=== PATIENT | female | born 1980 | race Caucasian/White ===

== ENCOUNTER 2016-12-03 16:52 | Emergency (ER) | payer OTHER ==
[~2016-12-03] VITALS: Ht 149.9 cm; Wt 68.0 kg
[~2016-12-03 16:52] MED LIST: ALBU0.5N2 NEB; ALBU1AER9 INH; CALC600T9 PO; CIPR-255 PO; CYAN100020 PO; ESTR0.3T PO; FLUT0.15 NAE; FLUT110A INH; HYDR-5688 PO; LISI10TA PO
[2016-12-03 16:59] VITALS: TEMP 36.8; Ht 149.9 cm; Wt 68.0 kg
[2016-12-03] MEDS ORDERED: HYDROmorphone INJ 1 MG/ML SYR IV STA ×2 (17:31→18:53)
[2016-12-03] MEDS ORDERED: KETOROLAC TROMETHAMINE 30 MG/ML VIAL IV STA (17:31)
[2016-12-03] MEDS ORDERED: ONDANSETRON INJ 2 MG/ML 2 ML VIAL IV STA (17:31)
[2016-12-03] MEDS ORDERED: SODIUM CHLORIDE 0.9% 1000ML 1,000 ML IV STA (17:31)
--- NOTE | 2016-12-03 17:32 | EMERGENCY ROOM VISIT NOTE ---
History Report prepared by Lai: Hiren Mackenzie Under the Supervision of: Dr. Vega Mckenzie M.D. First contact with patient: 17:23 Chief Complaint: BACK PAIN Stated Complaint: LOWER BACK PAIN W/NUMBNESS GOING DOWN LEG History of Present Illness The patient is a 36 year old female who presents to the Emergency Room with complaints of worsening back pain that started today. The patient has a history of back problems for the past few years. The patient has been complaining of a pressure in her lower back for the past week. The pressure is worsened with standing. Today, when the patient woke up her right leg started going numb. She notes that the numbness starts at her butt and radiates to her foot. She denies losing control of her bladder or bowels. Source of History: patient Onset: today Position: back (lower) Quality: pressure Timing: worsening Modifying Factors (Worsening): other (standing) Associated Symptoms: + numbness (right leg) Note: Denies: losing control of her bowels or bladder Review of Systems See HPI for pertinent positives & negatives. A total of 10 systems reviewed and were otherwise negative. Past Medical & Surgical Medical Problems: (1) Asthma (2) Hypertension Surgical Problems: (1) History of appendectomy (2) History of cholecystectomy (3) History of hysterectomy Family History Cancer Diabetes mellitus FH: heart disease FHx: gallbladder disease FHx: lung disease Hypertension Kidney disease Kidney stones Seizures Social History Smoking Status: Current Every Day Smoker Alcohol Use: none Marital Status: Housing Status: lives with family Occupation Status: unemployed Current/Historical Medications Scheduled Cyclobenzaprine Hcl (Flexeril), 10 MG PO TID Diclofenac Sodium (Diclofenac Sodium Dr), 1 TAB PO TID Docusate Sodium (Colace), 1 CAP PO BID Fluticasone Propionate (Inhala (Flovent Diskus), 1 PUFFS INH BID Gabapentin (Neurontin), 1 CAP PO TID Ipratropium-Albuterol (Duoneb), 1 TREATMENT INH Q4H Lisinopril (Prinivil), 10 MG PO DAILY Sennosides (Senokot), 8.6 MG PO HS Sumatriptan Succinate (Imitrex), 25 MG PO PRN Venlafaxine Hcl (Venlafaxine Extended Rel), 1 TAB PO DAILY Scheduled PRN Albuterol Sulfate (Proair Respiclick), 2 PUFF INH QID PRN for SOB/Wheezing Oxycodone/Acetaminophen 5MG/325MG (Percocet 5MG/325MG), 1-2 TAB PO Q4H PRN for Pain Allergies Coded Allergies: Penicillins (Verified Allergy, Intermediate, RASH, 12/03/16) Physical Exam Vital Signs Date Time Temp Pulse Resp B/P Pulse Ox O2 Delivery O2 Flow Rate FiO2 12/03/16 19:47 72 16 116/71 94 Room Air 12/03/16 18:50 69 18 136/85 98 Room Air 12/03/16 16:59 36.8 101 20 136/91 99 Room Air Physical Exam GENERAL: Patient is a healthy-appearing well-nourished HEAD: Normocephalic atraumatic EYES: Ocular movements intact pupils equal and react to light OROPHARYNX mucous membranes are moist no exudates present no erythema or edema present NECK: Supple no nuchal rigidity CHEST: Good equal expansion LUNGS: Clear and equal to auscultation CARDIAC: Normal S1 and S2 ABDOMEN: Soft nontender no guarding BACK: No CVA tenderness EXTREMITIES: No pain upon palpation normal muscle strength in all groups no clubbing cyanosis or edema NEURO: Patient is following commands is answering questions appropriately. Alert and oriented x3 Cranial Nerves 2-12 grossly intact Medical Decision & Procedures ER Provider Diagnostic Interpretation: MRI results as stated below per my review and radiologist interpretation: LUMBAR SPINE MRI HISTORY: Pt c/o low back pain, incontinence TECHNIQUE: Multiplanar multisequence MRI of the lumbar spine was performed without the use of contrast. COMPARISON: Lumbar spine 03/31/2015. FINDINGS: For the purpose of the report the L5-S1 disc space will be located on axial image 23 of 25. No fracture or subluxation. Disc spaces are preserved. The conus terminates at the T12-L1 disc space level. No disc herniations. Paraspinal soft tissues are unremarkable. L1-L2: No significant central canal or neural foraminal narrowing. L2-L3: No significant central canal or neural foraminal narrowing. L3-L4: No significant central canal or neural foraminal narrowing. L4-L5: No significant central canal or neural foraminal narrowing. L5-S1: No significant central canal or neural foraminal narrowing. IMPRESSION: Normal lumbar spine MRI. Electronically signed by: Taco Nielson M.D. 12/03/2016 7:16 PM Dictated Date/Time: 12/03/2016 7:13 PM Medications Administered Medications (Trade) Dose Ordered Sig/Dee Dee Route Start Time Stop Time Status Last Admin Dose Admin Sodium Chloride (Nss 1000ml) 1,000 ml @ 999 mls/hr Q1H1M STAT IV 12/03/16 17:31 12/03/16 18:31 DC 12/03/16 17:52 999 MLS/HR Dexamethasone Sodium Phosphate (Decadron Inj) 10 mg NOW ONCE IV 12/03/16 17:45 12/03/16 17:46 DC 12/03/16 17:58 10 MG Hydromorphone HCl (Dilaudid Inj) 1 mg NOW STAT IV 12/03/16 17:31 12/03/16 17:34 DC 12/03/16 17:55 1 MG Ketorolac Tromethamine (Toradol Inj) 30 mg NOW STAT IV 12/03/16 17:31 12/03/16 17:34 DC 12/03/16 18:00 30 MG Ondansetron HCl (Zofran Inj) 4 mg NOW STAT IV 12/03/16 17:31 12/03/16 17:34 DC 12/03/16 17:53 4 MG Hydromorphone HCl 1 mg 1 mg NOW STAT IV 12/03/16 18:53 12/03/16 18:54 DC 12/03/16 19:06 1 MG Promethazine HCl/ Sodium Chloride (Phenergan Inj/ Nss 50ml) 51 ml @ 204 mls/hr NOW STAT IV 12/03/16 18:53 12/03/16 19:07 DC 12/03/16 19:17 204 MLS/HR Oxycodone/ Acetaminophen (Percocet 5/ 325MG Home Pack) 1 homepack UD ONCE PO 12/03/16 19:00 12/03/16 19:01 DC 12/03/16 19:07 1 HOMEPACK Cyclobenzaprine HCl (FLEXERIL 10MG Home Pack) 1 homepack UD ONCE PO 12/03/16 19:45 12/03/16 19:46 DC 12/03/16 19:46 1 HOMEPACK Cyclobenzaprine HCl (Flexeril Tab) 10 mg STK-MED ONCE .ROUTE 5/14/17 19:42 12/03/16 19:43 DC 12/03/16 19:46 5 MG ED Course 1722: Past medical records reviewed. The patient was evaluated in room B3. A complete history and physical examination was performed. 1731: Ordered Zofran Inj 4 mg IV, Toradol Inj 30 mg IV, Dilaudid Inj 1 mg IV, NSS 1000 ml @ 999 mls/hr IV. 1745: Ordered Decadron Inj 10 mg IV. 1853: Promethazine HCl 25 mg/ NSS 51 ml @ 204 mls/hr IV, Dilaudid Inj 1 mg IV. 0: Ordered Oxycodone/ Acetaminophen 1 homepack PO. 1937: Ordered Flexeril Tab 5 mg PO. 1941: Ordered Flexeril tab 10 mg .ROUTE. 1944: Ordered Flexeril 10 MG Home Pack 1 homepack PO. 1950: At this time, I discussed the results with the patient. The manager ecommerce will be going in to discuss follow-up with the patient. 2100: Upon reexamination the patient is resting. I discussed results and treatment plan with the patient. She verbalizes agreement and understanding. The patient is ready for discharge. Medical Decision Differential diagnosis: Etiologies such as musculoskeletal, disc herniation, fracture, aortic disease, metastatic disease, cord compression, discitis, infection, renal colic, gastrointestinal, acute exacerbation of chronic back pain, sciatica, cauda equina, as well as others were entertained. This is a 36-year-old female who presents emergency department complaining of incontinence for the past 2 weeks along with pain that runs down her right leg. The patient is crying and her pain is out of control. Based on these findings patient was sent for an MRI of her spine. This did not show any acute process. IV was established, the patient was given normal saline bolus, 1 mg Dilaudid 2, Decadron, Toradol. Repeat examination revealed much improvement patient's symptoms. Based on the MRI findings I believe the patient is safe enough to be discharged home for follow-up with orthopedic surgery. The patient was in agreement with the treatment plan. Impression Primary Impression: Low back pain Scribe Attestation The scribe's documentation has been prepared under my direction and personally reviewed by me in its entirety. I confirm that the note above accurately reflects all work, treatment, procedures, and medical decision making performed by me. Departure Information Dispostion Home / Self-Care Prescriptions Sennosides (SENOKOT) 8.6 Mg Tab 8.6 MG PO HS for 10 Days, #10 TAB Prov: Vega Mckenzie MD 12/03/16 Docusate Sodium (COLACE) 100 Mg Cap 1 CAP PO BID for 10 Days, #20 CAP Prov: Vega Mckenzie MD 12/03/16 Oxycodone/Acetaminophen 5MG/325MG (PERCOCET 5MG/325MG) Tab 1-2 TAB PO Q4H Y for Pain, #14 TAB Prov: Vega Mckenzie MD 12/03/16 Cyclobenzaprine Hcl (FLEXERIL) 10 Mg Tab 10 MG PO TID, #21 TAB Prov: Vega Mckenzie MD 12/03/16 Referrals Amadeo Plaza M.D. (PCP) Forms HOME CARE DOCUMENTATION FORM, IMPORTANT VISIT INFORMATION Patient Instructions ED Exercises Lumbar Muscles, ED Sciatica, ED Sprain Strain Lumbar, Lumbar Pain Causes, My [facility] Additional Instructions Follow up with DR Ramos's office You received narcotic or benzodiazepene medication while in the emergency room today. Do not drive, operate heavy machinery, or drink alcohol under the influence of this medication. Take 600 mg Ibuprofen every 6 hours Take flexeril 10 mg three times as day Take Percocet as needed for breakthrough pain You have been examined and treated today on an emergency basis only. This is not a substitute for, or an effort to provide, complete comprehensive medical care. It is impossible to recognize and treat all injuries or illnesses in a single emergency department visit. It is therefore important that you follow up closely with Dr Plaza. Call as soon as possible for an appointment. Thank you for your time and consideration. I look forward to speaking with you again soon. Please don't hesitate to call us if you have any questions. Problem Qualifiers Primary Impression: Low back pain Chronicity: acute Back pain laterality: right Sciatica presence: with sciatica Sciatica laterality: sciatica of right side Qualified Codes: M54.41 - Lumbago with sciatica, right side
[2016-12-03] MEDS ORDERED: DEXAMETHASONE SOD INJ 10 MG/ML VIAL IV ONE (17:45)
[2016-12-03] MEDS ORDERED: PROMETHAZINE HCL INJ 25 MG in SODIUM CHLORIDE 0.9% 50ML 50 ML IV STA (18:53)
[2016-12-03] MEDS ORDERED: PERCOCET HOME PACK PO ONE (19:00)
[2016-12-03] MEDS ORDERED: VENL37.593 PO (19:06)
[2016-12-03] MEDS ORDERED: DICL1TAB5 PO (19:06)
[2016-12-03] MEDS ORDERED: IPRASOL4 INH (19:06)
--- NOTE | 2016-12-03 19:17 | DIAGNOSTIC IMAGING REPORT ---
LUMBAR SPINE MRI HISTORY: Pt c/o low back pain, incontinence TECHNIQUE: Multiplanar multisequence MRI of the lumbar spine was performed without the use of contrast. COMPARISON: Lumbar spine 03/31/2015. FINDINGS: For the purpose of the report the L5-S1 disc space will be located on axial image 23 of 25. No fracture or subluxation. Disc spaces are preserved. The conus terminates at the T12-L1 disc space level. No disc herniations. Paraspinal soft tissues are unremarkable. L1-L2: No significant central canal or neural foraminal narrowing. L2-L3: No significant central canal or neural foraminal narrowing. L3-L4: No significant central canal or neural foraminal narrowing. L4-L5: No significant central canal or neural foraminal narrowing. L5-S1: No significant central canal or neural foraminal narrowing. IMPRESSION: Normal lumbar spine MRI. Electronically signed by: Taco Nielson M.D. 12/03/2016 7:16 PM Dictated Date/Time: 12/03/2016 7:13 PM
[2016-12-03] MEDS ORDERED: CYCLOBENZAPRINE HCL 5 MG TAB PO STA (19:38)
[2016-12-03] MEDS ORDERED: CYCLOBENZAPRINE HCL 10 MG TAB ONE (19:42)
[2016-12-03] MEDS ORDERED: OXYC-57 PO (19:44)
[2016-12-03] MEDS ORDERED: CYCL10TA6 PO (19:44)
[2016-12-03] MEDS ORDERED: FLEXERIL HOME PACK 10 MG VIAL PO ONE (19:45)
[2016-12-03] MEDS ORDERED: SENN1TAB77 PO (19:46)
[2016-12-03] MEDS ORDERED: DOCU-94 PO (19:46)
[2016-12-03 19:47] VITALS: BP 116/71; PULSE 72; O2SAT 94
== END 2016-12-03 19:53 | disposition home or self-care (01) ==
LOC: C.EDB 16:53
DX: M54.5 Low back pain (principal); I10 Essential (primary) hypertension; J45.909 Unspecified asthma, uncomplicated; F17.200 Nicotine dependence, unspecified, uncomplicated; Z90.710 Acquired absence of both cervix and uterus; Z90.49 Acquired absence of other specified parts of digestive tract; Z98.890 Other specified postprocedural states; Z79.899 Other long term (current) drug therapy; Z80.9 Family history of malignant neoplasm, unspecified; Z83.3 Family history of diabetes mellitus; Z82.49 Family history of ischemic heart disease and other diseases of the circulatory system; Z84.1 Family history of disorders of kidney and ureter; Z82.0 Family history of epilepsy and other diseases of the nervous system; Z88.0 Allergy status to penicillin

== ENCOUNTER 2017-02-01 17:52 | Emergency (ER) | payer OTHER ==
[~2017-02-01] VITALS: Ht 149.9 cm; Wt 67.1 kg
[~2017-02-01 17:52] MED LIST changes: -ALBU0.5N2 NEB; -ALBU1AER9 INH; -CALC600T9 PO; -CIPR-255 PO; -CYAN100020 PO; +DICL1TAB5 PO; -ESTR0.3T PO; -FLUT0.15 NAE; -FLUT110A INH; -HYDR-5688 PO; +IPRASOL4 INH; +OXYC-57 PO; +VENL37.593 PO
[2017-02-01 17:55] VITALS: TEMP 37.1; Ht 149.9 cm; Wt 67.1 kg
[2017-02-01] MEDS ORDERED: DiphenhydrAMINE HCL 50 MG/ML VIAL IV STA (18:14)
[2017-02-01] MEDS ORDERED: SODIUM CHLORIDE 0.9% 1000ML 1,000 ML IV STA (18:14)
[2017-02-01] MEDS ORDERED: PROCHLORPERAZINE 5 MG/ML 2 ML VIAL IV STA (18:14)
[2017-02-01 18:29] VITALS: O2SAT 98
[2017-02-01 18:49] LABS: BASO % 0.4 %; BASO ABS # 0.04 K/uL (0-0.2); COMPLETE YES; EOS % 1.5 %; IG% 0.2 %; LYMPH % 34.4 %; LYMPH ABS # 3.44 K/uL (1.2-3.4); MEAN CELL VOLUME 87.6 fL (80-100); MEAN CORPUSCULAR HEMOGLOBIN 30.5 pg (25-34); MEAN CORPUSCULAR HGB CONC 34.9 g/dl (32-36); MEAN PLATELET VOLUME 10.5 fL (7.4-10.4); MONO % 5.1 %; NEUT % 58.4 %; PLATELET COUNT 294 K/uL (130-400); RED BLOOD COUNT 4.91 M/uL (4.2-5.4)
[2017-02-01 18:50] LABS: POINT OF CARE TROPONIN I < 0.030 ng/ml (0-0.045)
[2017-02-01 18:56] LABS: PROTHROMBIN TIME (PATIENT) 10.6 SECONDS (9.0-12.0)
[2017-02-01] MEDS ORDERED: LSN20 PO (19:04)
[2017-02-01] MEDS ORDERED: AMT10 PO (19:04)
[2017-02-01] MEDS ORDERED: CYCL10TA7 PO (19:05)
[2017-02-01] MEDS ORDERED: SUMA25TA12 PO (19:06)
[2017-02-01] MEDS ORDERED: GABA1CAP5 PO (19:06)
[2017-02-01] MEDS ORDERED: FLUT1AER5 INH (19:06)
[2017-02-01] MEDS ORDERED: ALBU18002 INH (19:06)
--- NOTE | 2017-02-01 19:09 | DIAGNOSTIC IMAGING REPORT ---
SINGLE VIEW CHEST CLINICAL HISTORY: Atypical chest pain. FINDINGS: An AP, portable, upright chest radiograph is compared to chest x-ray and chest CT dated 09/18/2015. The examination is degraded by portable technique and patient rotation. The cardiomediastinal silhouette is unremarkable. There is mild elevation of the right hemidiaphragm. The lungs and pleural spaces are clear. No pneumothorax is seen. The bony thorax is grossly intact. Cholecystectomy clips are noted in the right upper quadrant. IMPRESSION: No active disease in the chest. Electronically signed by: Irineo Abad M.D. 02/01/2017 7:08 PM Dictated Date/Time: 02/01/2017 7:06 PM
[2017-02-01 19:11] LABS: BUN/CREATININE RATIO 9.6 (10-20); CALCIUM 9.6 mg/dl (8.5-10.1); CREATININE 0.88 mg/dl (0.60-1.20); POTASSIUM 3.5 mmol/L (3.5-5.1)
--- NOTE | 2017-02-01 19:24 | DIAGNOSTIC IMAGING REPORT ---
CT SCAN OF THE BRAIN WITHOUT IV CONTRAST CLINICAL HISTORY: Headache. COMPARISON STUDY: No priors. TECHNIQUE: Unenhanced axial CT scan of the brain is performed from the vertex to the skull base. Automated dose control exposure was utilized. CT DOSE: 537.48 mGy.cm FINDINGS: Brain parenchyma: The brain parenchyma is normal in appearance. There is no hemorrhage, mass effect, or evidence of acute territorial ischemia by CT criteria. Watt-white matter is preserved. No extra-axial fluid collection is seen. Ventricles, sulci, cisterns: Normal in configuration. Intracranial vasculature: The visualized intracranial vasculature at the skull base is normal in appearance. Calvarium: The calvarium appears intact.. The patient is edentulous. Sinuses and mastoids: The visualized paranasal sinuses are clear. The mastoid air cells are well pneumatized. Orbits: The bony orbits are grossly intact. IMPRESSION: No acute intracranial abnormality. Electronically signed by: Irineo Abad M.D. 02/01/2017 7:23 PM Dictated Date/Time: 02/01/2017 7:21 PM
--- NOTE | 2017-02-01 19:43 | EMERGENCY ROOM VISIT NOTE ---
History Report prepared by Lai: Kenya Moody Under the Supervision of: Dr. Juan Zaidi M.D. First contact with patient: 18:08 Chief Complaint: HYPERTENSION Stated Complaint: ELEVATED BP, HEADACHE History of Present Illness The patient is a 36 year old female who presents to the Emergency Room with complaints of hypertension beginning today. She states that her blood pressure was at 146/104. She states that she takes Lisinopril for her hypertension and that she did take the medication today. She also reports that this dosage increased yesterday. The patient also reports having a pounding headache starting today and states that she has a history of migraines. She reports that she took Tylenol this afternoon for her headache but that it provided no relief. She also complains of left-sided chest pain beginning today that waxes and wanes. The pain is described as being sharp. She denies shortness of breath , abdominal pain, and vomiting. She states that there is no chance that she is because she had a hysterectomy. She also reports having a history of asthma and that she smokes. Source of History: patient Onset: today Position: other (global) Quality: other (hypertension ) Associated Symptoms: + headache, + chest pain, No SOB, No vomiting, No abdominal pain Review of Systems See HPI for pertinent positives & negatives. A total of 10 systems reviewed and were otherwise negative. Past Medical & Surgical Medical Problems: (1) Asthma (2) Hypertension Surgical Problems: (1) History of appendectomy (2) History of cholecystectomy (3) History of hysterectomy Family History Cancer Diabetes mellitus FH: heart disease FHx: gallbladder disease Hypertension Kidney disease Kidney stones Seizures Social History Smoking Status: Current Every Day Smoker Alcohol Use: none Marital Status: Housing Status: lives with family Occupation Status: unemployed Current/Historical Medications Scheduled Amitriptyline HCl (Amitriptyline HCl), 10 MG PO HS Fluticasone Propionate (Inhala (Flovent Diskus), 1 PUFFS INH BID Gabapentin (Neurontin), 1 CAP PO TID Lisinopril (Lisinopril), 20 MG PO DAILY Sumatriptan Succinate (Imitrex), 25 MG PO PRN Scheduled PRN Albuterol Sulfate (Proair Respiclick), 2 PUFF INH QID PRN for SOB/Wheezing Cyclobenzaprine HCl (Cyclobenzaprine HCl), 10 MG PO TID PRN for Muscle Spasms Ipratropium-Albuterol (Duoneb), 1 TREATMENT INH Q4H PRN for SOB/Wheezing Allergies Coded Allergies: Penicillins (Verified Allergy, Intermediate, RASH, 12/03/16) Physical Exam Vital Signs Date Time Temp Pulse Resp B/P (MAP) Pulse Ox O2 Delivery O2 Flow Rate FiO2 02/01/17 19:07 82 02/01/17 18:42 82 20 144/82 98 Room Air 02/01/17 18:29 98 Room Air 02/01/17 17:55 37.1 100 20 136/93 98 Room Air Physical Exam Constitutional: Vital signs reviewed. Eyes: Pupils are equal round reactive to light. Conjunctiva are noninjected. ENT: Pharynx is clear without erythema or exudate. Mucous membranes are moist. Neck supple without meningeal signs. Respiratory: Clear to auscultation bilaterally. Breath sounds are equal bilaterally. Cardiovascular: Regular rate and rhythm. No rubs or gallops. GI: Soft, nondistended and nontender. Bowel sounds are present. Musculoskeletal: No peripheral edema. No lower extremity tenderness. Integumentary: No cyanosis. Neurological: The patient is awake and alert. Cranial nerves II-XII are intact. Motor is 5 out of 5 all extremities. Sensation is intact to light touch all extremities. Normal speech. No pronator drift. Psychiatric: Anxious affect. Medical Decision & Procedures ER Provider Diagnostic Interpretation: CT results as stated below per my review and radiologist interpretation. CT SCAN OF THE BRAIN WITHOUT IV CONTRAST CLINICAL HISTORY: Headache. COMPARISON STUDY: No priors. TECHNIQUE: Unenhanced axial CT scan of the brain is performed from the vertex to the skull base. Automated dose control exposure was utilized. CT DOSE: 537.48 mGy.cm FINDINGS: Brain parenchyma: The brain parenchyma is normal in appearance. There is no hemorrhage, mass effect, or evidence of acute territorial ischemia by CT criteria. Watt-white matter is preserved. No extra-axial fluid collection is seen. Ventricles, sulci, cisterns: Normal in configuration. Intracranial vasculature: The visualized intracranial vasculature at the skull base is normal in appearance. Calvarium: The calvarium appears intact.. The patient is edentulous. Sinuses and mastoids: The visualized paranasal sinuses are clear. The mastoid air cells are well pneumatized. Orbits: The bony orbits are grossly intact. IMPRESSION: No acute intracranial abnormality. Electronically signed by: Irineo Abad M.D. 02/01/2017 7:23 PM Dictated Date/Time: 02/01/2017 7:21 PM X-ray results as stated below per interpretation by me and the radiologist: SINGLE VIEW CHEST CLINICAL HISTORY: Atypical chest pain. FINDINGS: An AP, portable, upright chest radiograph is compared to chest x-ray and chest CT dated 09/18/2015. The examination is degraded by portable technique and patient rotation. The cardiomediastinal silhouette is unremarkable. There is mild elevation of the right hemidiaphragm. The lungs and pleural spaces are clear. No pneumothorax is seen. The bony thorax is grossly intact. Cholecystectomy clips are noted in the right upper quadrant. IMPRESSION: No active disease in the chest. Electronically signed by: Irineo Abad M.D. 02/01/2017 7:08 PM Dictated Date/Time: 02/01/2017 7:06 PM Laboratory Results 02/01/17 17:25 Red Blood Count 4.91, Mean Corpuscular Volume 87.6, Mean Corpuscular Hemoglobin 30.5, Mean Corpuscular Hemoglobin Concent 34.9, Mean Platelet Volume 10.5, Neutrophils (%) (Auto) 58.4, Lymphocytes (%) (Auto) 34.4, Monocytes (%) (Auto) 5.1, Eosinophils (%) (Auto) 1.5, Basophils (%) (Auto) 0.4, Neutrophils # (Auto) 5.84, Lymphocytes # (Auto) 3.44, Monocytes # (Auto) 0.51, Eosinophils # (Auto) 0.15, Basophils # (Auto) 0.04 02/01/17 17:25 Test 02/01/17 17:25 02/01/17 18:31 White Blood Count 10.00 K/uL (4.8-10.8) Red Blood Count 4.91 M/uL (4.2-5.4) Hemoglobin 15.0 g/dL (12.0-16.0) Hematocrit 43.0 % (37-47) Mean Corpuscular Volume 87.6 fL (80-100) Mean Corpuscular Hemoglobin 30.5 pg (25-34) Mean Corpuscular Hemoglobin Concent 34.9 g/dl (32-36) Platelet Count 294 K/uL (130-400) Mean Platelet Volume 10.5 fL (7.4-10.4) Neutrophils (%) (Auto) 58.4 % Lymphocytes (%) (Auto) 34.4 % Monocytes (%) (Auto) 5.1 % Eosinophils (%) (Auto) 1.5 % Basophils (%) (Auto) 0.4 % Neutrophils # (Auto) 5.84 K/uL (1.4-6.5) Lymphocytes # (Auto) 3.44 K/uL (1.2-3.4) Monocytes # (Auto) 0.51 K/uL (0.11-0.59) Eosinophils # (Auto) 0.15 K/uL (0-0.5) Basophils # (Auto) 0.04 K/uL (0-0.2) RDW Standard Deviation 42.9 fL (36.4-46.3) RDW Coefficient of Variation 13.4 % (11.5-14.5) Immature Granulocyte % (Auto) 0.2 % Immature Granulocyte # (Auto) 0.02 K/uL (0.00-0.02) Prothrombin Time 10.6 SECONDS (9.0-12.0) Prothromb Time International Ratio 1.0 (0.9-1.1) Activated Partial Thromboplast Time 26.6 SECONDS (21.0-31.0) Partial Thromboplastin Ratio 1.0 Anion Gap 9.0 mmol/L (3-11) Est Creatinine Clear Calc Drug Dose 75.1 ml/min Estimated GFR () 99.4 Estimated GFR (Non- 85.7 BUN/Creatinine Ratio 9.6 (10-20) Calcium Level 9.6 mg/dl (8.5-10.1) Bedside D-Dimer 355 ng/mlFEU (0-450) Bedside Troponin I < 0.030 ng/ml (0-0.045) Laboratory results as reviewed by me. Medications Administered Medications (Trade) Dose Ordered Sig/Dee Dee Route Start Time Stop Time Status Last Admin Dose Admin Prochlorperazine Edisylate (Compazine Inj) 10 mg NOW STAT IV 02/01/17 18:14 02/01/17 18:17 DC 02/01/17 18:49 10 MG Diphenhydramine HCl (Benadryl Inj) 50 mg NOW STAT IV 7/13/17 18:14 02/01/17 18:17 DC 02/01/17 18:49 50 MG Sodium Chloride 1,000 ml @ 999 mls/hr Q1H1M STAT IV 02/01/17 18:14 02/01/17 19:14 DC 02/01/17 18:45 999 MLS/HR ECG Indication: other (hypertension) Rate (beats per minute): 84 Rhythm: normal sinus Findings: no acute ischemic change, no ectopy ED Course 1810: The patient was evaluated in room C5. A complete history and physical exam was performed. 1813: Ordered Sodium Chloride 1,000 ml @ 999 mls/hr IV, Benadryl Inj 50 mg IV, Compazine Inj 10 mg IV. 1908: I reassessed the patient and she says her headache has improved. I also discussed test results. 1929: Upon reevaluation, the patient appeared to have improvement of her symptoms. I discussed tonight's findings with her. She verbalized agreement of the treatment plan. She was discharged home. Medical Decision This is a 36-year-old female who presents with headache, high blood pressure and chest pain. Differential diagnosis includes migraine headache, tension headache, intracranial hemorrhage, intracranial mass, pleurisy, pulmonary embolism, AK. I did perform a limited focused review of portions of the patient 's old chart on the electronic medical record. The patient was seen here in November for lower back pain. She had an MRI of her back done which was normal and treated with Percocet and Flexeril. Blood Pressure Screening: Patient was found to have an elevated blood pressure and was referred to their primary doctor for recheck and further treatment. Medication Reconciliation: I attest that I have personally reviewed the patient' s current medication list. I did evaluate the patient as noted above. The patient is presenting with elevated blood pressure but her blood pressure here is only mildly elevated. She does complain of a headache and is neurologically intact. She has no fever or neurologic deficits. She does state the headache feels different from her regular migraines. She also has some intermittent left-sided chest pain but currently has no chest pain. She denies any associated symptoms. IV access was established. The patient was placed on a continuous environmental monitoring technician. I did order and personally review the patient's 12-lead EKG and chest x-ray as described above. I did order and review the patient's blood work as noted in the electronic medical record. Troponin and d-dimer are both negative. I did order a CT of the head. I did review the images myself as well as the radiology report as described above. There is no evidence of acute intracranial abnormality. I did treat the patient with normal saline, Compazine and Benadryl IV. On reevaluation patient states she is feeling better. I did recommend close follow up with her doctor. She was discharged in good condition and given return instructions as outlined below. Impression Primary Impression: Acute headache Additional Impressions: Left sided chest pain Hypertension Scribe Attestation The scribe's documentation has been prepared under my direct and personally reviewed by me in its entirety. I confirm that the note above accurately reflects all work, treatment, procedures, and medical decision making performed by me. Departure Information Dispostion Home / Self-Care Referrals No Doctor, Assigned (PCP) Amadeo Plaza M.D. Forms HOME CARE DOCUMENTATION FORM, IMPORTANT VISIT INFORMATION, WORK / SCHOOL INSTRUCTIONS Patient Instructions ED Chest Pain Atypical Unkn Cause, Headache Pain, Hypertension Dc, My [facility] [address] Additional Instructions You have been examined and treated today on an emergency basis only. This is not a substitute for, or an effort to provide, complete comprehensive medical care. It is impossible to recognize and treat all injuries or illnesses in a single emergency department visit. It is therefore important that you follow up closely with your physician. Call as soon as possible for an appointment. Return for worsening symptoms or if you develop fever, numbness or weakness on one side of your body, difficulties with your speech or walking, or any other concerning symptoms. Problem Qualifiers Primary Impression: Acute headache Headache type: unspecified Intractability: not intractable Qualified Codes : R51 - Headache Additional Impressions: Hypertension Hypertension type: unspecified Qualified Codes: I10 - Essential (primary) hypertension
[2017-02-01 19:45] VITALS: BP 140/80; PULSE 88; O2SAT 98
== END 2017-02-01 19:47 | disposition home or self-care (01) ==
LOC: C.EDB 17:53 → C.EDC 19:47
DX: R51 Headache (principal); R07.9 Chest pain, unspecified; I10 Essential (primary) hypertension; J45.909 Unspecified asthma, uncomplicated; Z83.3 Family history of diabetes mellitus; Z82.49 Family history of ischemic heart disease and other diseases of the circulatory system; Z82.0 Family history of epilepsy and other diseases of the nervous system; F17.200 Nicotine dependence, unspecified, uncomplicated

== ENCOUNTER 2017-02-17 18:40 | Emergency (ER) | payer OTHER ==
[~2017-02-17] VITALS: Ht 160 cm; Wt 66.3 kg
[~2017-02-17 18:40] MED LIST changes: +ALBU18002 INH; +AMT10 PO; +CYCL10TA7 PO; -DICL1TAB5 PO; +FLUT1AER5 INH; +GABA1CAP5 PO; -LISI10TA PO; +LSN20 PO; -OXYC-57 PO; +SUMA25TA12 PO; -VENL37.593 PO
[2017-02-17 18:43] VITALS: TEMP 36.9; Ht 160 cm; Wt 66.3 kg
[2017-02-17] MEDS ORDERED: PROCHLORPERAZINE 5 MG/ML 2 ML VIAL IV STA (18:52)
[2017-02-17] MEDS ORDERED: DiphenhydrAMINE HCL 50 MG/ML VIAL IV STA (18:52)
[2017-02-17] MEDS ORDERED: MoRPHine SULFATE 10 MG/ML CARP/VIAL IV STA (18:52)
[2017-02-17] MEDS ORDERED: SODIUM CHLORIDE 0.9% 1000ML 1,000 ML IV STA ×2 (18:52)
--- NOTE | 2017-02-17 18:57 | EMERGENCY ROOM VISIT NOTE ---
History Report prepared by Lai: Ruel Curiel Under the Supervision of: Dr. Yonathan Franco M.D. First contact with patient: 18:47 Chief Complaint: FLANK PAIN Stated Complaint: R FLANK AND LOW BACK PAIN History of Present Illness The patient is a 36 year old female who presents to the Emergency Room with complaints of persistent low right back pain that started yesterday. She says that that pain radiates into her right flank and right lower quadrant, as well as right groin area, and that the pain came "right out of the blue". The patient states that her stomach doesn't feel right but she does not feel like vomiting. She says that she has no history of pain like this nor any history of kidney stones. The patient has not taken any medications for the pain, and she does not take any daily medications. She denies any rashes, urinary symptoms, or leg swelling. The patient notes that she has a history of a cholecystectomy, hysterectomy, and appendectomy. Source of History: patient Onset: Yesterday Position: back (right lower) Timing: other (persistent) Associated Symptoms: + abdominal pain, No vomiting, No urinary symptoms, No rash Note: Associated symptoms: Pain radiating into right flank area and right groin area. Stomach does not feel right. Denies leg swelling. Review of Systems See HPI for pertinent positives & negatives. A total of 10 systems reviewed and were otherwise negative. Past Medical & Surgical Medical Problems: (1) Asthma (2) Hypertension Surgical Problems: (1) History of appendectomy (2) History of cholecystectomy (3) History of hysterectomy Family History Cancer Diabetes mellitus FH: heart disease FHx: gallbladder disease Hypertension Kidney disease Kidney stones Seizures Social History Smoking Status: Current Every Day Smoker Alcohol Use: none Marital Status: Housing Status: lives with family Occupation Status: unemployed Current/Historical Medications Scheduled Amitriptyline HCl (Amitriptyline HCl), 10 MG PO HS Fluticasone Propionate (Inhala (Flovent Diskus), 1 PUFFS INH BID Gabapentin (Neurontin), 400 MG PO TID Lisinopril (Lisinopril), 20 MG PO DAILY Sumatriptan Succinate (Imitrex), 25 MG PO PRN Scheduled PRN Albuterol Sulfate (Proair Respiclick), 2 PUFF INH QID PRN for SOB/Wheezing Ipratropium-Albuterol (Duoneb), 1 TREATMENT INH Q4H PRN for SOB/Wheezing Allergies Coded Allergies: Penicillins (Verified Allergy, Intermediate, RASH, 12/03/16) Tramadol (Verified Adverse Reaction, Severe, GI SYMPTOMS, 02/01/17) Physical Exam Vital Signs Date Time Temp Pulse Resp B/P (MAP) Pulse Ox O2 Delivery O2 Flow Rate FiO2 02/17/17 21:39 71 18 106/69 98 02/17/17 20:42 66 18 129/77 99 Room Air 02/17/17 18:43 36.9 95 18 138/93 98 Room Air Physical Exam GENERAL: Patient is in moderate distress and uncomfortable appearing. Patient is crying, and moving over bed as if she can't get comfortable. HEENT: No acute trauma, normocephalic atraumatic, mucous membranes moist, no nasal congestion, no scleral icterus. NECK: No stridor, no adenopathy, no meningismus, trachea is midline. LUNGS: No dyspnea. Clear to auscultation and equal bilaterally. No wheeze, no rhonchi. HEART: Regular rate and rhythm. No murmurs, rubs, gallops appreciated. ABDOMEN: Right lower quadrant tenderness to palpation. Soft, bowel sounds positive, no masses appreciated, no peritonitis. BACK: Mild right flank CVA tenderness. EXTREMITIES: Normal motion all extremities, no cyanosis, no edema. NEUROLOGIC: Alert and oriented, no acute motor or sensory deficits, no focal weakness, cranial nerves grossly intact. SKIN: No rash, no jaundice, no diaphoresis. Medical Decision & Procedures ER Provider Diagnostic Interpretation: CT results are stated below per my interpretation and the radiologist's interpretation. CT OF THE ABDOMEN AND PELVIS WITHOUT CONTRAST, STONE PROTOCOL CLINICAL HISTORY: Right flank pain into groin, previous hysterctomy.appendectomy. COMPARISON STUDY: CT of the abdomen and pelvis October 19, 2015. TECHNIQUE: Helical axial images of the abdomen and pelvis were obtained without IV or oral contrast according to renal stone protocol. A dose lowering technique was utilized adhering to the principles of ALARA. FINDINGS: Fatty infiltration of the liver is noted. A 1.8 cm hypodense right hepatic lobe lesion is unchanged since exam of October 19, 2015. This likely reflects a hemangioma. There is no biliary ductal dilatation status post cholecystectomy. There is no peripancreatic infiltration. Unenhanced images of the spleen, adrenal and left kidney are normal. Note is made of a 3 mm nonobstructing calculus within the midpole of the right kidney. There is no hydronephrosis. No ureteral calculi are identified. There are scattered colonic diverticula without evidence for acute diverticulitis. The appendix is not visualized. There is no bowel obstruction. No lymphadenopathy is present. Skeletal structures are unremarkable. Pelvic calcifications reflect phleboliths. IMPRESSION: 1. 3 mm nonobstructing right renal calculus. No ureteral calculi or hydronephrosis. 2. Fatty liver. 3. No acute process within the abdomen or pelvis. Electronically signed by: Clem Dodge M.D. 02/17/2017 9:10 PM Dictated Date/Time: 02/17/2017 9:03 PM Laboratory Results 02/17/17 19:05 Red Blood Count 5.05, Mean Corpuscular Volume 87.7, Mean Corpuscular Hemoglobin 30.7, Mean Corpuscular Hemoglobin Concent 35.0, Mean Platelet Volume 10.0, Neutrophils (%) (Auto) 62.5, Lymphocytes (%) (Auto) 29.3, Monocytes (%) (Auto) 6.2, Eosinophils (%) (Auto) 1.5, Basophils (%) (Auto) 0.3, Neutrophils # (Auto) 5.95, Lymphocytes # (Auto) 2.79, Monocytes # (Auto) 0.59, Eosinophils # (Auto) 0.14, Basophils # (Auto) 0.03 02/17/17 19:05 Test 02/17/17 18:50 02/17/17 19:05 Urine Color YELLOW Urine Appearance CLEAR (CLEAR) Urine pH 7.5 (4.5-7.5) Urine Specific [place] 1.015 (1.000-1.030) Urine Protein NEG (NEG) Urine Glucose (UA) NEG (NEG) Urine Ketones NEG (NEG) Urine Occult Blood NEG (NEG) Urine Nitrite NEG (NEG) Urine Bilirubin NEG (NEG) Urine Urobilinogen NEG (NEG) Urine Leukocyte Esterase NEG (NEG) Urine WBC (Auto) 5-10 /hpf (0-5) Urine RBC (Auto) 0-4 /hpf (0-4) Urine Hyaline Casts (Auto) 1-5 /lpf (0-5) Urine Epithelial Cells (Auto) >30 /lpf (0-5) Urine Bacteria (Auto) 1+ (NEG) White Blood Count 9.52 K/uL (4.8-10.8) Red Blood Count 5.05 M/uL (4.2-5.4) Hemoglobin 15.5 g/dL (12.0-16.0) Hematocrit 44.3 % (37-47) Mean Corpuscular Volume 87.7 fL (80-100) Mean Corpuscular Hemoglobin 30.7 pg (25-34) Mean Corpuscular Hemoglobin Concent 35.0 g/dl (32-36) Platelet Count 296 K/uL (130-400) Mean Platelet Volume 10.0 fL (7.4-10.4) Neutrophils (%) (Auto) 62.5 % Lymphocytes (%) (Auto) 29.3 % Monocytes (%) (Auto) 6.2 % Eosinophils (%) (Auto) 1.5 % Basophils (%) (Auto) 0.3 % Neutrophils # (Auto) 5.95 K/uL (1.4-6.5) Lymphocytes # (Auto) 2.79 K/uL (1.2-3.4) Monocytes # (Auto) 0.59 K/uL (0.11-0.59) Eosinophils # (Auto) 0.14 K/uL (0-0.5) Basophils # (Auto) 0.03 K/uL (0-0.2) RDW Standard Deviation 42.3 fL (36.4-46.3) RDW Coefficient of Variation 13.2 % (11.5-14.5) Immature Granulocyte % (Auto) 0.2 % Immature Granulocyte # (Auto) 0.02 K/uL (0.00-0.02) Anion Gap 5.0 mmol/L (3-11) Est Creatinine Clear Calc Drug Dose 75.5 ml/min Estimated GFR () 89.4 Estimated GFR (Non- 77.2 BUN/Creatinine Ratio 10.8 (10-20) Calcium Level 9.7 mg/dl (8.5-10.1) Total Bilirubin 0.2 mg/dl (0.2-1) Direct Bilirubin < 0.1 mg/dl (0-0.2) Aspartate Amino Transf (AST/SGOT) 20 U/L (15-37) Alanine Aminotransferase (ALT/SGPT) 45 U/L (12-78) Alkaline Phosphatase 98 U/L (45-117) Total Protein 7.6 gm/dl (6.4-8.2) Albumin 3.9 gm/dl (3.4-5.0) Lipase 112 U/L (73-393) Laboratory results as reviewed by me. Medications Administered Medications (Trade) Dose Ordered Sig/Dee Dee Route Start Time Stop Time Status Last Admin Dose Admin Sodium Chloride 1,000 ml @ 999 mls/hr Q1H1M STAT IV 02/17/17 18:52 02/17/17 19:52 DC 02/17/17 19:33 999 MLS/HR Prochlorperazine Edisylate (Compazine Inj) 5 mg NOW STAT IV 02/17/17 18:52 02/17/17 18:55 DC 02/17/17 19:34 5 MG Morphine Sulfate (MoRPHine SULFATE INJ) 6 mg NOW STAT IV 02/17/17 18:52 02/17/17 18:55 DC 02/17/17 19:34 6 MG Diphenhydramine HCl (Benadryl Inj) 50 mg NOW STAT IV 02/17/17 18:52 02/17/17 18:55 DC 02/17/17 19:33 50 MG Sodium Chloride 1,000 ml @ 999 mls/hr Q1H1M STAT IV 02/17/17 18:52 02/17/17 19:52 DC 02/17/17 19:33 999 MLS/HR ED Course 1848: The patient was evaluated in room A2. A complete history and physical exam was performed. 1851: Ordered NSS 1000 ml @ 999 mls/hr IV, Benadryl Inj 50 mg IV, Morphine Sulfate Inj 6 mg IV, Compazine Inj 5 mg IV. 2: I reevaluated the patient and she has improvement of her pain and wants to go home. The patient verbally expressed understanding and agreement of the treatment plan. The patient will be discharged. Medical Decision Differential: Renal Colic, Pyelonephritis, Hydronephrosis, Diverticulitis, Retroperitoneal Bleed/Infection, Aortic Pathology, MSK, Neurologic Pathology, amongst other pathologies entertained. 36 yr old female arrives with acute right flank pain. She is clearly quite upset, crying though exam without severe TTP nor peritonitis nor findings of surgical abdomen. Already with gb out, appendix out, and total hysterectomy. CT without evidence of ureteral stone nor is there significant amount of blood in urine. She on re-evaluation is in no distress playing on ipad. I do not feel she requires inpatient monitoring at this time. She is stable and looks well. Follow up with PCP. Reviewed symptoms requiring RTED. Medication Reconcilliation Current Medication List: was personally reviewed by me She does not have any medications on her list. Blood Pressure Screening Patient's blood pressure: Elevated blood pressure Blood pressure disposition: Elevated BP felt to be situational Impression Primary Impression: Right flank pain Scribe Attestation The scribe's documentation has been prepared under my direction and personally reviewed by me in its entirety. I confirm that the note above accurately reflects all work, treatment, procedures, and medical decision making performed by me. Departure Information Dispostion Home / Self-Care Referrals Amadeo Plaza M.D. (PCP) Patient Instructions ED Flank Pain Uncertain Cause, My [facility]
[2017-02-17 19:08] LABS: URINE APPEARANCE CLEAR (CLEAR); URINE BILIRUBIN NEG (NEG); URINE COLOR YELLOW; URINE EPITHELIAL CELL AUTO >30 /lpf (0-5); URINE NITRITE NEG (NEG); URINE PH 7.5 (4.5-7.5); URINE SPECIFIC GRAVITY 1.015 (1.000-1.030); UROBILINOGEN NEG (NEG); ZZUR CULT IF INDIC CLEAN CATCH YES
[2017-02-17 19:11] LABS: MANUAL MICROSCOPIC REQUIRED? NO; REVIEW REQ? NO
[2017-02-17 19:20] LABS: BASO % 0.3 %; BASO ABS # 0.03 K/uL (0-0.2); COMPLETE YES; EOS % 1.5 %; HEMATOCRIT 44.3 % (37-47); IG% 0.2 %; LYMPH % 29.3 %; LYMPH ABS # 2.79 K/uL (1.2-3.4); MEAN CELL VOLUME 87.7 fL (80-100); MEAN CORPUSCULAR HEMOGLOBIN 30.7 pg (25-34); MONO % 6.2 %; NEUT % 62.5 %; PLATELET COUNT 296 K/uL (130-400); RED BLOOD COUNT 5.05 M/uL (4.2-5.4); WHITE BLOOD COUNT 9.52 K/uL (4.8-10.8)
[2017-02-17 19:43] LABS: ALT/SGPT 45 U/L (12-78); AST/SGOT 20 U/L (15-37); BLOOD UREA NITROGEN 10 mg/dl (7-18); BUN/CREATININE RATIO 10.8 (10-20); CALCIUM 9.7 mg/dl (8.5-10.1); CARBON DIOXIDE 26 mmol/L (21-32); CHLORIDE 109 mmol/L (98-107); CREATININE 0.96 mg/dl (0.60-1.20); GLUCOSE 90 mg/dl (70-99); SODIUM 140 mmol/L (136-145)
[2017-02-17 19:46] LABS: ALKALINE PHOSPHATASE 98 U/L (45-117)
--- NOTE | 2017-02-17 21:11 | DIAGNOSTIC IMAGING REPORT ---
CT OF THE ABDOMEN AND PELVIS WITHOUT CONTRAST, STONE PROTOCOL CLINICAL HISTORY: Right flank pain into groin, previous hysterctomy.appendectomy. COMPARISON STUDY: CT of the abdomen and pelvis October 19, 2015. TECHNIQUE: Helical axial images of the abdomen and pelvis were obtained without IV or oral contrast according to renal stone protocol. A dose lowering technique was utilized adhering to the principles of ALARA. FINDINGS: Fatty infiltration of the liver is noted. A 1.8 cm hypodense right hepatic lobe lesion is unchanged since exam of October 19, 2015. This likely reflects a hemangioma. There is no biliary ductal dilatation status post cholecystectomy. There is no peripancreatic infiltration. Unenhanced images of the spleen, adrenal and left kidney are normal. Note is made of a 3 mm nonobstructing calculus within the midpole of the right kidney. There is no hydronephrosis. No ureteral calculi are identified. There are scattered colonic diverticula without evidence for acute diverticulitis. The appendix is not visualized. There is no bowel obstruction. No lymphadenopathy is present. Skeletal structures are unremarkable. Pelvic calcifications reflect phleboliths. IMPRESSION: 1. 3 mm nonobstructing right renal calculus. No ureteral calculi or hydronephrosis. 2. Fatty liver. 3. No acute process within the abdomen or pelvis. Electronically signed by: Clem Dodge M.D. 02/17/2017 9:10 PM Dictated Date/Time: 02/17/2017 9:03 PM
[2017-02-17 21:39] VITALS: BP 106/69; PULSE 71; O2SAT 98
== END 2017-02-17 21:40 | disposition home or self-care (01) ==
LOC: C.EDB 18:41 → C.EDA 21:40
DX: R10.9 Unspecified abdominal pain (principal); M54.5 Low back pain; I10 Essential (primary) hypertension; F17.210 Nicotine dependence, cigarettes, uncomplicated; K76.0 Fatty (change of) liver, not elsewhere classified; N20.0 Calculus of kidney

== ENCOUNTER 2017-02-22 20:47 | Emergency (ER) | payer OTHER ==
[~2017-02-22] VITALS: Ht 149.9 cm; Wt 65.0 kg
[~2017-02-22 20:47] MED LIST changes: -CYCL10TA7 PO
[2017-02-22 20:49] VITALS: BP 132/90; PULSE 101; TEMP 36.9; O2SAT 97; Ht 149.9 cm; Wt 65.0 kg
[2017-02-22] MEDS ORDERED: AMLO-110 PO (21:05)
[2017-02-22] MEDS ORDERED: DICL1TAB5 PO (21:06)
[2017-02-22] MEDS ORDERED: PRED20TA PO (21:25)
[2017-02-22] MEDS ORDERED: CYCL10TA6 PO (21:25)
[2017-02-22] MEDS ORDERED: FLEXERIL HOME PACK 10 MG VIAL PO ONE (21:30)
--- NOTE | 2017-02-23 00:24 | EMERGENCY ROOM VISIT NOTE ---
History First contact with patient: 20:58 Chief Complaint: LEG PAIN,LEG INJURY Stated Complaint: MY RIGHT LEG IS NUMB History of Present Illness The patient is a 36 year old female who presents to the Emergency Room with complaints of numbness in her right leg for the past few days. The patient states that she has a history of chronic back pain and does follow with a chiropractor and the pain management clinic for this. She states and orthopedic surgeon told her that she has a severely damaged back and would likely need surgery, although she is "too young". The patient does not have recent injury or trauma to explain her symptoms. She simply describes numbness throughout her right leg. She has not had fever or chills. No difficulty using the bathroom. She rates her discomfort a 10/10. Review of Systems More than 10 systems were reviewed and otherwise negative with the exception of history of present illness. Past Medical/Surgical History Medical Problems: (1) Asthma (2) Hypertension Surgical Problems: (1) History of appendectomy (2) History of cholecystectomy (3) History of hysterectomy Family History Cancer Diabetes mellitus FH: heart disease FHx: gallbladder disease Hypertension Kidney disease Kidney stones Seizures Social History Smoking Status: Current Every Day Smoker Alcohol Use: none Marital Status: Housing Status: lives with family Occupation Status: unemployed Current/Historical Medications Scheduled Amitriptyline HCl (Amitriptyline HCl), 10 MG PO HS Amlodipine (Norvasc), 5 MG PO QAM Cyclobenzaprine Hcl (Flexeril), 10 MG PO TID Diclofenac Sodium (Diclofenac Sodium Dr), 25 MG PO TID Fluticasone Propionate (Inhala (Flovent Diskus), 1 PUFFS INH BID Gabapentin (Neurontin), 400 MG PO TID Lisinopril (Lisinopril), 20 MG PO DAILY Prednisone (Prednisone), 0 PO DAILY Sumatriptan Succinate (Imitrex), 25 MG PO PRN Scheduled PRN Albuterol Sulfate (Proair Respiclick), 2 PUFF INH QID PRN for SOB/Wheezing Ipratropium-Albuterol (Duoneb), 1 TREATMENT INH Q4H PRN for SOB/Wheezing Physical Exam Vital Signs Date Time Temp Pulse Resp B/P (MAP) Pulse Ox O2 Delivery O2 Flow Rate FiO2 02/22/17 20:49 36.9 101 18 132/90 97 Room Air Pain Rating (0-10): 10.0 Physical Exam VITALS: Vitals are noted on the nurse's note and reviewed by myself. Vital signs stable. GENERAL: Well-developed, well-nourished, white female, who is in no acute distress and resting comfortably. Patient is cooperative with the examination. NECK: Supple without nuchal rigidity. No lymphadenopathy. No thyromegaly. Cervical spine is nontender. HEART: Regular rate and rhythm without murmurs gallops or rubs. LUNGS: Clear to auscultation bilaterally without wheezes, rales or rhonchi. No retractions or accessory muscle use. ABDOMEN: Positive normal bowel sounds x 4. Soft, nontender, without masses or organomegaly. No guarding or rebound tenderness. BACK: No tenderness of the upper or mid back. The patient is guarding and resisting palpation of the lower lumbar spine and paravertebral musculature, thus limiting the examination. There is no appreciable erythema or edema. No SI joint tenderness. Straight leg raise is negative bilateral. Patellar reflexes are normal. MUSCULOSKELETAL: No muscle atrophy, erythema, or edema noted. Full range of motion without joint tenderness in all extremities. No appreciated sensory loss as reported by the patient. NEURO: Patient was alert and oriented to person place and time. CN II through XII grossly intact. Medical Decision & Procedures Medications Administered Medications (Trade) Dose Ordered Sig/Dee Dee Route Start Time Stop Time Status Last Admin Dose Admin Cyclobenzaprine HCl (FLEXERIL 10MG Home Pack) 1 homepack UD ONCE PO 02/22/17 21:30 02/22/17 21:31 DC 02/22/17 21:30 1 HOMEPACK Prednisone (PredniSONE TAB) 40 mg NOW STAT PO 02/22/17 21:23 02/22/17 21:24 DC 02/22/17 21:30 40 MG ED Course Physical exam and history were performed. Nursing notes, EMR, and Medication List were personally reviewed. Patient appears to have reports of numbness of her right leg. She does describe an extensive history of back problems, and is quite histrionic on physical examination. Her physical exam is completely unremarkable other than her actively moving away from my hand during palpation of her back. Review of the EMR shows the patient had an MRI of her lumbar spine about 2 months ago that was completely normal. This is in contrast to the patient's report that she would require back surgery because of bulging disks and other structural deficit. The patient also had a CT scan of her abdomen and pelvis a few days ago, and the skeletal structures were without significant findings. In essence she has had both CT scan and MRI of her low back recently without any appreciable findings. Her exam is concerning for malingering. I did review the [place] drug monitoring program, and the patient was receiving narcotics until about 4 months ago, which coincides with her increase in visits to the emergency department. Overall I do not feel comfortable providing the patient narcotics. I have significant concern for drug-seeking behavior and opioid dependence. The patient reported history and objective findings appear to be in contrast with one another. The patient will be given a course of prednisone and Flexeril. She was instructed on the use of [id number] analgesics. She needs to follow with her primary care physician and specialist for further management, as I explained how the emergency department is not able to treat chronic back pain. The patient was very dissatisfied with this information, and was quite profane in expressing her anger. The patient was able to ambulate without any difficulty from the emergency department at the time of her departure. The chart was completed utilizing [employer] Speech Voice Recognition Software. Grammatical errors, random word insertions, pronoun errors, and incomplete sentences are an occasional consequence of this system due to software limitations, ambient noise, and hardware issues. Any formal questions or concerns about the content, text, or information contained within the body of this dictation should be directly addressed to the provider for clarification. . Medical Decision Differential diagnosis: Etiologies such as musculoskeletal, disc herniation, fracture, aortic disease, metastatic disease, cord compression, discitis, infection, renal colic, gastrointestinal, acute exacerbation of chronic back pain, sciatica, cauda equina, as well as others were entertained. [place] Drug Monitoring Program Search Results: patient reviewed within database Medication Reconcilliation Current Medication List: was personally reviewed by me Blood Pressure Screening Blood pressure disposition: Elevated BP felt to be situational Impression Primary Impression: Low back pain with sciatica Departure Information Dispostion Home / Self-Care Condition GOOD Prescriptions Prednisone (Prednisone) 20 Mg Tab 0 PO DAILY, #18 TAB 3 DAILY FOR 3 DAYS, THEN 2 DAILY FOR 3 DAYS, THEN 1 DAILY FOR 3 DAYS. Prov: Devonte Shannon PA-C 02/22/17 Cyclobenzaprine Hcl (FLEXERIL) 10 Mg Tab 10 MG PO TID for 7 Days, #21 TAB Prov: Devonte Shannon PA-C 02/22/17 Forms HOME CARE DOCUMENTATION FORM, IMPORTANT VISIT INFORMATION Patient Instructions My [facility] Additional Instructions You were seen and evaluated today on an emergency basis only. This is not a substitute for, or an effort to provide, complete comprehensive medical care. It is not possible to recognize and treat all injuries or illnesses in a single emergency department visit. For this reason it is recommended that you followup with your primary care physician or your orthopedist for ongoing care and evaluation. For baseline pain relief you may alternate ibuprofen and acetaminophen every 4 hours for pain control. Take 600 mg ibuprofen (Advil) and then 4 hours later take 1000 mg acetaminophen (Tylenol). Do not take more than 3000 mg acetaminophen in a single day. Flexeril 1 tablet up to 3 times a day as needed for muscle spasms. No driving, working, or alcohol use with Flexeril. Take prednisone as prescribed The emergency department is not able to treat chronic back pain. These services are provided by your specialists. You are welcome to return to the emergency department anytime with new, worsening, or concerning symptoms.
== END 2017-02-22 21:50 | disposition home or self-care (01) ==
LOC: C.EDB 20:48 → C.EDD 21:50
DX: M54.40 Lumbago with sciatica, unspecified side (principal); I10 Essential (primary) hypertension; J45.909 Unspecified asthma, uncomplicated; F17.200 Nicotine dependence, unspecified, uncomplicated; Z90.49 Acquired absence of other specified parts of digestive tract; Z90.710 Acquired absence of both cervix and uterus; Z98.890 Other specified postprocedural states; Z79.899 Other long term (current) drug therapy; Z80.9 Family history of malignant neoplasm, unspecified; Z83.3 Family history of diabetes mellitus; Z82.49 Family history of ischemic heart disease and other diseases of the circulatory system; Z83.79 Family history of other diseases of the digestive system; Z84.1 Family history of disorders of kidney and ureter; Z82.0 Family history of epilepsy and other diseases of the nervous system

== ENCOUNTER → 2018-02-28 | Outpatient (CLI) | payer OTHER ==
[~2018-02-28] MED LIST changes: +AMLO5TAB3 PO; +DICL1TAB5 PO; +GABA-1220 PO; -GABA1CAP5 PO; +IPRA-64 INH; -IPRASOL4 INH; +LISI-726 PO; -LSN20 PO
--- NOTE | 2018-02-28 16:04 | DIAGNOSTIC IMAGING REPORT ---
LUMBAR SPINE W/O CONTRAST HISTORY: Pain M47.817, M51.36, M54.5, M54.16 TECHNIQUE: Multiplanar multisequence MRI of the lumbar spine was performed without the use of contrast. COMPARISON: 12/03/2016 FINDINGS: For the purpose of the report the L5-S1 disc space will be located on axial image 23 of 26. Normal signal characteristics of the vertebral bodies as well as intervertebral discs L1-L2: No significant central canal or neural foraminal narrowing. L2-L3: No significant central canal or neural foraminal narrowing. L3-L4: No significant central canal or neural foraminal narrowing. L4-L5: No significant central canal or neural foraminal narrowing. L5-S1: No significant central canal or neural foraminal narrowing. IMPRESSION: Normal study. No change from the prior exam. The above report was generated using voice recognition software. It may contain grammatical, syntax or spelling errors. Electronically signed by: Yair Ron M.D. 02/28/2018 4:03 PM Dictated Date/Time: 02/28/2018 4:00 PM
== END | disposition home or self-care (01) ==
LOC: C.MRI 14:35
PROVIDERS: ATTEND Nurse Practitioner Family
DX: M47.817 Spondylosis without myelopathy or radiculopathy, lumbosacral region (principal); M51.36 Other intervertebral disc degeneration, lumbar region; M54.16 Radiculopathy, lumbar region